=== PATIENT | female | born 1980 | race Caucasian/White ===

== ENCOUNTER 2021-02-11 02:49 | Emergency (ER) | payer OTHER ==
[~2021-02-11] VITALS: Ht 157.5 cm; Wt 61.7 kg
[2021-02-11] MEDS ORDERED: Bactrim Ds Tab1 EACH PO (03:32)
== END 2021-02-11 03:41 | disposition home or self-care (01) ==
LOC: ER 02:49
DX: L02.415 Cutaneous abscess of right lower limb (principal); L03.115 Cellulitis of right lower limb; Z23 Encounter for immunization
CPT/HCPCS: 10060; 90471; 90714; 99283-25; A9270